=== PATIENT | female | born 1980 | race Caucasian/White ===

== ENCOUNTER 2017-10-08 18:27 | Emergency (ER) | payer SELFPAY ==
[~2017-10-08] VITALS: Ht 167.6 cm; Wt 82.9 kg
[2017-10-08 18:33] VITALS: BP 124/64; PULSE 76; RESP 17; TEMP 98.8; O2SAT 97
--- NOTE | 2017-10-08 19:13 | PD ---
HPI Chief Complaint: GI Complaint Time Seen by Provider: 18:57 Travel History International Travel<30 days: No Contact w/Intl Traveler<30days: No Traveled to known affect area: No History of Present Illness HPI 36-year-old female here for evaluation of fever, nausea, vomiting, purulent drainage from mouth. Patient reports long history of dental infections and poor dentition. She has complete set of upper dentures. She denies pain in her mouth, however states that she can express purulence from her lower gingiva. She has had fever of up to 104F over the last 4 days which she has taken ibuprofen for. Last episode of vomiting was this morning and consisted of food, no blood. She has history of opioid dependence and is on methadone, last IVDU was over 2 years ago. No abdominal pain. No diarrhea. No chest pain or dyspnea. PFSH Past Medical History ?: Not LMP: just finished Social History Tobacco Use: Yes Allergies-Medications (Allergen,Severity, Reaction): Coded Allergies: Penicillins (Verified Allergy, Unknown, 10/08/17) Reported Meds & Prescriptions Reported Meds & Active Scripts Active Clindamycin (Clindamycin HCl) 300 Mg Cap 300 Mg PO Q6H 10 Days Reported Ortho Tri-Cyclen (Norgestimate-Ethinyl Estradiol) 0.18/0.215/0.25 mg-35 Mcg Tab 1 Tab PO DAILY Methadone (Methadone HCl) 40 Mg Tab 120 Mg PO DAILY Review of Systems Except as stated in HPI: all other systems reviewed are Neg Physical Exam Narrative GENERAL: Well-developed, well-nourished, comfortable, no apparent distress. SKIN: Focused skin assessment warm/dry. No rash. HEAD: Atraumatic. Normocephalic. EYES: Pupils equal and round. No scleral icterus. No injection or drainage. ENT: Poor dentition with upper dentures with small amount of purulence from severely rotted lower/anterior teeth. No fluctuance. No crepitus. No tenderness. No submandibular swelling or induration. Normal pharynx. No drooling or stridor. NECK: Trachea midline. No JVD. No submandibular or neck swelling or induration. CARDIOVASCULAR: Regular rate and rhythm. RESPIRATORY: No accessory muscle use. Clear to auscultation. Breath sounds equal bilaterally. GASTROINTESTINAL: Abdomen soft, non-tender, nondistended. MUSCULOSKELETAL: No obvious deformities. No clubbing. No cyanosis. No edema. NEUROLOGICAL: Awake and alert. No obvious cranial nerve deficits. Motor grossly within normal limits. Normal speech. PSYCHIATRIC: Appropriate mood and affect; insight and judgment normal. Data Data Last Documented VS Vital Signs Date Time Temp Pulse Resp B/P (MAP) Pulse Ox O2 Delivery O2 Flow Rate FiO2 10/08/17 21:18 65 16 134/71 (92) 96 10/08/17 19:40 Room Air 10/08/17 18:33 98.8 Orders Orders Beta Hcg (Quant/Titer) (10/08/17 19:04) Complete Blood Count With Diff (10/08/17 19:04) Comprehensive Metabolic Panel (10/08/17 19:04) Iv Access Insert/Monitor (10/08/17 19:04) Ecg Monitoring (10/08/17 19:04) Oximetry (10/08/17 19:04) Sodium Chloride 0.9% Flush (Ns Flush) (10/08/17 19:15) Influenzae A/B Antigen (10/08/17 19:04) Clindamycin 600 Mg/Ns Premix (Cleocin 60 (10/08/17 19:15) Ed Discharge Order (10/08/17 20:28) Labs Laboratory Tests Test 10/08/17 19:56 White Blood Count 9.3 TH/MM3 Red Blood Count 4.44 MIL/MM3 Hemoglobin 11.8 GM/DL Hematocrit 36.3 % Mean Corpuscular Volume 81.7 FL Mean Corpuscular Hemoglobin 26.6 PG Mean Corpuscular Hemoglobin Concent 32.5 % Red Cell Distribution Width 14.9 % Platelet Count 197 TH/MM3 Mean Platelet Volume 8.4 FL Neutrophils (%) (Auto) 58.2 % Lymphocytes (%) (Auto) 35.2 % Monocytes (%) (Auto) 5.0 % Eosinophils (%) (Auto) 0.8 % Basophils (%) (Auto) 0.8 % Neutrophils # (Auto) 5.3 TH/MM3 Lymphocytes # (Auto) 3.3 TH/MM3 Monocytes # (Auto) 0.5 TH/MM3 Eosinophils # (Auto) 0.1 TH/MM3 Basophils # (Auto) 0.1 TH/MM3 CBC Comment DIFF FINAL Differential Comment Blood Urea Nitrogen 8 MG/DL Creatinine 0.81 MG/DL Random Glucose 114 MG/DL Total Protein 7.5 GM/DL Albumin 3.6 GM/DL Calcium Level 9.1 MG/DL Alkaline Phosphatase 111 U/L Aspartate Amino Transf (AST/SGOT) 12 U/L Alanine Aminotransferase (ALT/SGPT) 16 U/L Total Bilirubin LESS THAN 0.1 MG/DL Sodium Level 140 MEQ/L Potassium Level 3.9 MEQ/L Chloride Level 103 MEQ/L Carbon Dioxide Level 31.3 MEQ/L Anion Gap 6 MEQ/L Estimat Glomerular Filtration Rate 81 ML/MIN Human Chorionic Gonadotropin, Quant LESS THAN 1 MIU/ML MDM Medical Decision Making Medical Screen Exam Complete: Yes Emergency Medical Condition: Yes Differential Diagnosis Dental infection, osteomyelitis, dehydration/metabolic abnormality Narrative Course Initial vital signs show heart rate 76, blood pressure 124/64, pulse ox 97% on room air, oral temp of 98.8F. CBC is unremarkable. CMP is unremarkable. Beta-hCG is negative. Patient was made aware of all findings. She is resting comfortably. She has very poor dentition was severely lower/anterior teeth with some purulent drainage. There is no tenderness along the jawline. No submandibular swelling or induration to suggest deep space neck infection. Abdominal exam is benign. Nausea is likely secondary to swallowing purulence from lower gingiva. Plan is to start her on clindamycin and I will give her information to local dental clinics. She was advised on when to return to the emergency department. She verbalizes understanding and agreement with plan. Diagnosis Primary Impression: Dental infection Additional Impression: Nausea and vomiting Qualified Codes: R11.2 - Nausea with vomiting, unspecified Referrals: Dentist 3 days Additional Instructions: Follow-up with a dentist this week. Take antibiotic as prescribed. Return to the emergency department for worsening symptoms or any other concerns. Scripts Clindamycin (Clindamycin) 300 Mg Cap 300 MG PO Q6H for Infection for 10 Days, #40 CAP 0 Refills Prov: Jensen Granados MD 10/08/17 Disposition: 01 DISCHARGE HOME Condition: Stable Jensen Granados MD Oct 08, 2017 19:13
[2017-10-08] MEDS ORDERED: SODIUM CHLORIDE 0.9% FLUSH 10 ML FLUSH IV FLUSH PRN (19:15)
[2017-10-08] MEDS ORDERED: CLINDAMYCIN 600 MG/NS PREMIX 50 ML IV ONE (19:15)
[2017-10-08] MEDS ORDERED: METH40TA PO (19:31)
[2017-10-08] MEDS ORDERED: ORTHTAB4 PO (19:31)
[2017-10-08 19:40] VITALS: BP 139/70; PULSE 68; RESP 16; O2SAT 97
[2017-10-08 20:05] LABS: AUTOMATED NEUTROPHIL # 5.3 TH/MM3 (1.8-7.7); BASOPHIL # 0.1 TH/MM3 (0-0.2); BASOPHIL % 0.8 % (0.0-2.0); EOSINOPHIL # 0.1 TH/MM3 (0-0.4); EOSINOPHIL % 0.8 % (0.0-4.0); HEMATOCRIT 36.3 % (35.0-46.0); HEMOGLOBIN 11.8 GM/DL (11.6-15.3); LYMPH % 35.2 % (9.0-44.0); LYMPHOCYTE # 3.3 TH/MM3 (1.0-4.8); MEAN CELL VOLUME 81.7 FL (80.0-100.0); MEAN CORPUSCULAR HEMOGLOBIN 26.6 PG (27.0-34.0); MEAN CORPUSCULAR HGB CONC 32.5 % (32.0-36.0); MEAN PLATELET VOLUME 8.4 FL (7.0-11.0); MONOCYTE # 0.5 TH/MM3 (0-0.9); NEUT % 58.2 % (16.0-70.0); PLATELET COUNT 197 TH/MM3 (150-450); RED BLOOD COUNT 4.44 MIL/MM3 (4.00-5.30); RED CELL DISTRIBUTION WIDTH 14.9 % (11.6-17.2); WHITE BLOOD COUNT 9.3 TH/MM3 (4.0-11.0)
[2017-10-08 20:14] LABS: CHLORIDE 103 MEQ/L (98-107); SODIUM (NA) 140 MEQ/L (136-145)
[2017-10-08 20:18] LABS: CALCIUM 9.1 MG/DL (8.5-10.1)
[2017-10-08 20:19] LABS: ALBUMIN 3.6 GM/DL (3.4-5.0); BICARBONATE 31.3 MEQ/L (21.0-32.0); BLOOD UREA NITROGEN 8 MG/DL (7-18); GLUCOSE,RANDOM 114 MG/DL (74-106)
[2017-10-08 20:22] LABS: ALT (GPT) 16 U/L (10-53); AST (GOT) 12 U/L (15-37); CREATININE 0.81 MG/DL (0.50-1.00); GLOMERULAR FILTRATION RATE 81 ML/MIN (>89)
[2017-10-08] MEDS ORDERED: CLIN300C5 PO (20:22)
[2017-10-08 20:23] LABS: TOTAL BILIRUBIN ADULT LESS THAN 0.1 MG/DL (0.2-1.0); TOTAL PROTEIN 7.5 GM/DL (6.4-8.2)
[2017-10-08 20:25] LABS: ALKALINE PHOSPHATASE 111 U/L (45-117)
[2017-10-08 21:18] VITALS: BP 134/71
== END 2017-10-08 21:22 | disposition home or self-care (01) ==
LOC: PHED 18:27
DX: K04.7 Periapical abscess without sinus (principal); R11.2 Nausea with vomiting, unspecified; Z72.0 Tobacco use; Z88.0 Allergy status to penicillin; Z79.899 Other long term (current) drug therapy
CPT/HCPCS: 80053; 84702; 85025; 87804; 96374